=== PATIENT | male | born 2000 | race Caucasian/White ===

== ENCOUNTER 2021-10-30 18:08 | Emergency (ER) | payer SELFPAY ==
[~2021-10-30] VITALS: Ht 167.6 cm; Wt 59.0 kg
--- NOTE | 2021-10-30 20:55 | NUR ---
DR AGUILERA PAGED PER DR PEREZ.
[2021-10-30] MEDS ORDERED: METH4TAB3 PO (21:23)
[2021-10-30] MEDS ORDERED: HYDR-4209 PO (21:23)
[2021-10-30] MEDS ORDERED: AMOX-430 PO (21:23)
--- NOTE | 2021-10-30 22:28 | NUR ---
Patient discharged to home in stable condition. Written and verbal after care instructions given. Patient verbalizes understanding of instruction.
[2021-10-30 22:29] VITALS: BP 130/72
== END 2021-10-30 22:30 | disposition home or self-care (01) ==
LOC: ER 18:12
DX: S02.40EA Zygomatic fracture, right side, initial encounter for closed fracture (principal); S05.11XA Contusion of eyeball and orbital tissues, right eye, initial encounter; Z59.00 Homelessness unspecified; Z79.899 Other long term (current) drug therapy; Y08.89XA Assault by other specified means, initial encounter; Y93.89 Activity, other specified; Y92.89 Other specified places as the place of occurrence of the external cause; Y99.8 Other external cause status
CPT/HCPCS: 70450-TC; 70486-TC